=== PATIENT | male | born 1955 | race Caucasian/White ===

== ENCOUNTER 2017-11-30 16:03 | Emergency (ER) | payer OTHER ==
[2017-11-30] MEDS: HYDROCODONE/APAP (5/325) TAB PO (17:46)
[2017-11-30] MEDS: VALACYCLOVIR 500 MG TAB PO (18:03)
== END 2017-11-30 18:07 | disposition home or self-care (01) ==
LOC: FTE 16:03
DX: B02.9 Zoster without complications (principal)
CPT/HCPCS: 99284; Z7502